=== PATIENT | female | born 1970 | race Caucasian/White ===

== ENCOUNTER 2017-10-03 11:01 | Inpatient (IN) | payer BC ==
[2017-10-03] MEDS: TRANEXAMIC ACID 1,000 MG in D5W 100 ML AT CLOSURE X1 IVPB
[~2017-10-03 11:01] MED LIST: CEFAZOLIN 2 GM/50 ML (PMX) 50 ML (FOR WT < 120 KG) IVPB; LIDOCAINE 2% (SDV) 5 ML INJ
[2017-10-03] MEDS ORDERED: POVIDONE IODINE 10% 28.4 GM OINT (14:08)
[2017-10-03] MEDS: POLYMYXIN B 500000 UNIT INJ (14:21)
[2017-10-03] MEDS: BACITRACIN 50000 UNITS INJ (14:21)
[2017-10-03] MEDS: ROPIVACAINE 0.2% 60 ML, CLONIDINE 100 MCG, EPINEPHrine 0.3 MG, SOD CHLORIDE 0.9% 50 ML IRR (14:22)
[2017-10-03] MEDS ORDERED: ROPIVACAINE IRR (14:30)
[2017-10-03] MEDS ORDERED: CLONIDINE IRR (14:30)
[2017-10-03] MEDS ORDERED: EPINEPHRINE IRR (14:30)
[2017-10-03] MEDS ORDERED: [UNRECOGNIZED DRUG - OTHER] IRR (14:30)
[2017-10-03] MEDS ORDERED: FENTAnyl 50 MCG/ML VIAL (15:13)
[2017-10-03] MEDS: TRANEXAMIC ACID 1,000 MG in D5W 100 ML AT INCISION X1 IVPB (15:15)
[2017-10-03] MEDS ORDERED: PROPOFOL 20 ML (16:42)
[2017-10-03] MEDS ORDERED: SUGAMMADEX SODIUM 200 MG/2 ML VIAL IV (16:42)
[2017-10-03] MEDS ORDERED: ROCURONIUM 50 MG INJ (16:42)
[2017-10-03] MEDS ORDERED: SUCCINYLCHOLINE CHLORIDE 100 MG/5 ML SYG IV (16:42)
[2017-10-03] MEDS ORDERED: CEFAZOLIN 1 GM INJ (16:42)
[2017-10-03] MEDS ORDERED: ZOLPIDEM 5 MG TAB PO (17:00)
[2017-10-03] MEDS ORDERED: SENNA/DOCUSATE NA (8.6MG/50MG) TAB PO (17:00)
[2017-10-03] MEDS ORDERED: MAGNESIUM HYDROXIDE 30ML CUP PO (17:00)
[2017-10-03] MEDS ORDERED: oxyCODONE 5 MG TAB PO ×2 (17:00)
[2017-10-03] MEDS ORDERED: NACL 0.9% 3 ML SYG IV (17:00)
[2017-10-03] MEDS ORDERED: TRIMETHOBENZAMIDE 100 MG/ML VIAL IM (17:00)
[2017-10-03] MEDS ORDERED: BETHANECHOL 25 MG TAB PO (17:00)
[2017-10-03] MEDS ORDERED: BISACODYL 10 MG SUPP PR (17:00)
[2017-10-03] MEDS ORDERED: NALOXONE (0.4 MG/ML) INJ IV (17:00)
[2017-10-03] MEDS ORDERED: DIPHENHYDRAMINE 50 MG INJ IM (17:00)
[2017-10-03] MEDS ORDERED: NA PHOSPHATE/BIPHOS 133 ML ENEMA PR (17:00)
[2017-10-03] MEDS ORDERED: OXYCODONE/ACETAMINOPHEN (5/325) TAB PO (17:30)
[2017-10-03] MEDS ORDERED: ALBUTEROL 0.083% (NEB) 2.5 MG/3 ML AMP HHN (17:30)
[2017-10-03] MEDS ORDERED: ONDANSETRON 4 MG INJ IV (17:30)
[2017-10-03] MEDS ORDERED: FENTAnyl 50 MCG/ML VIAL IV ×2 (17:30)
[2017-10-03] MEDS ORDERED: DIPHENHYDRAMINE 50 MG INJ IV (17:30)
[2017-10-03] MEDS ORDERED: HYDROmorphONE (0.2 MG/ML) 10ML SYG IV ×3 (17:30)
[2017-10-03] MEDS ORDERED: METOCLOPRAMIDE 10 MG INJ IV (17:30)
[2017-10-03] MEDS: ONDANSETRON 4 MG INJ IV ×2 (17:36→22:50)
[2017-10-03] MEDS: MEPERIDINE 25 MG INJ IV ×2 (17:38→18:00)
[2017-10-03] MEDS: DOCUSATE SODIUM 100 MG CAP PO (17:43)
[2017-10-03] MEDS: CEFAZOLIN 1 GM/50 ML (PMX) 50 ML IVPB (17:43)
[2017-10-03] MEDS: ASPIRIN (EC) 325 MG TAB PO (17:43)
[2017-10-03] MEDS: FENTAnyl 50 MCG/ML VIAL IV ×2 (17:54→18:45)
[2017-10-03] MEDS: SOD CHLORIDE 0.9% 1,000 ML IV (17:59)
[2017-10-03] MEDS: GABAPENTIN 100 MG CAP PO (22:48)
[2017-10-03] MEDS: oxyCODONE 5 MG TAB PO (23:42)
[2017-10-04] MEDS: CEFAZOLIN 1 GM/50 ML (PMX) 50 ML IVPB ×2 (00:23→09:30)
[2017-10-04] MEDS: oxyCODONE 5 MG TAB PO ×5 (02:44→19:54)
[2017-10-04] MEDS: ONDANSETRON 4 MG INJ IV ×2 (04:24→11:47)
[2017-10-04] MEDS: SOD CHLORIDE 0.9% 1,000 ML IV ×2 (05:41→17:52)
[2017-10-04] MEDS: PANTOPRAZOLE (EC) 40 MG TAB PO (05:41)
[2017-10-04 05:43] LABS: ADD MAN DIFF? NO
[2017-10-04 05:47] LABS: WHITE BLOOD COUNT 8.1 10^3/ul (4.8-10.8)
[2017-10-04 05:47] LABS: BASOPHILS % 0.1 % (0.0-2.0); EOSINOPHILS % 0.1 % (0.0-7.0); HEMATOCRIT 27.1 % (37.0-47.0); HEMOGLOBIN 9.4 g/dl (12.0-16.0); LYMPHOCYTES # 1.5 10^3/ul (0.8-2.9); LYMPHOCYTES % 18.7 % (15.0-51.0); MEAN CORPUSCULAR HEMOGLOBIN 28.7 pg (29.0-33.0); MEAN CORPUSCULAR HGB CONC 34.7 g/dl (32.0-37.0); MEAN CORPUSCULAR VOLUME 82.9 fl (82.0-101.0); MONOCYTE # 0.5 10^3/ul (0.3-0.9); MONOCYTES % 6.7 % (0.0-11.0); NEUTROPHILS % 74.2 % (39.0-77.0); PLATELET COUNT 182 10^3/UL (140-415); RED BLOOD COUNT 3.27 10^6/ul (4.20-5.40); RED CELL DISTRIBUTION WIDTH 12.4 % (11.5-14.5)
[2017-10-04 06:40] LABS: ADD UMIC YES; UR ASCORBIC ACID NEGATIVE (NEGATIVE); UR BILIRUBIN (Dip) NEGATIVE (NEGATIVE); UR BLOOD (Dip) 1+ mg/dL (NEGATIVE); UR CLARITY CLEAR (CLEAR); UR COLOR YELLOW (YELLOW); UR GLUCOSE (Dip) NEGATIVE (NEGATIVE); UR KETONES (Dip) NEGATIVE (NEGATIVE); UR LEUKOCYTE ESTERASE (Dip) NEGATIVE Leu/ul (NEGATIVE); UR NITRITE (Dip) NEGATIVE (NEGATIVE); UR RBC 1 /HPF (0-5); UR SPECIFIC GRAVITY (Dip) 1.014 (1.003-1.030); UR TOTAL PROTEIN (Dip) NEGATIVE (NEGATIVE); UR UROBILINOGEN (Dip) NEGATIVE (NEGATIVE); UR WBC 1 /HPF (0-5)
[2017-10-04 06:46] LABS: ANION GAP 13 (8-16); BLOOD UREA NITROGEN 9 mg/dl (7-20); CALCIUM 7.6 mg/dl (8.4-10.2); CARBON DIOXIDE 24 mmol/L (21-31); CHLORIDE 109 mmol/L (97-110); CREATININE 0.87 mg/dl (0.44-1.00); GLUCOSE 105 mg/dl (70-220); POTASSIUM 3.9 mmol/L (3.5-5.1); SODIUM 142 mmol/L (135-144)
[2017-10-04] MEDS ORDERED: CELECOXIB 200 MG CAP PO (09:00)
[2017-10-04] MEDS: FERROUS FUMARATE (SR) TAB PO ×2 (09:29→20:53)
[2017-10-04] MEDS: GABAPENTIN 100 MG CAP PO ×2 (09:29→20:53)
[2017-10-04] MEDS: ASPIRIN (EC) 325 MG TAB PO (09:29)
[2017-10-04] MEDS: DOCUSATE SODIUM 100 MG CAP PO ×2 (09:30→20:53)
[2017-10-04] MEDS: ACETAMINOPHEN 325 MG TAB PO (22:31)
[2017-10-04 22:47] LABS: ADD UMIC YES; UR ASCORBIC ACID NEGATIVE (NEGATIVE); UR BILIRUBIN (Dip) NEGATIVE (NEGATIVE); UR BLOOD (Dip) 2+ mg/dL (NEGATIVE); UR CLARITY SLIGHTLY CLOUDY (CLEAR); UR COLOR YELLOW (YELLOW); UR GLUCOSE (Dip) NEGATIVE (NEGATIVE); UR KETONES (Dip) NEGATIVE (NEGATIVE); UR LEUKOCYTE ESTERASE (Dip) NEGATIVE Leu/ul (NEGATIVE); UR NITRITE (Dip) NEGATIVE (NEGATIVE); UR RBC 4 /HPF (0-5); UR SPECIFIC GRAVITY (Dip) 1.006 (1.003-1.030); UR TOTAL PROTEIN (Dip) NEGATIVE (NEGATIVE); UR UROBILINOGEN (Dip) NEGATIVE (NEGATIVE); UR WBC 6 /HPF (0-5)
[2017-10-05] MEDS: oxyCODONE 5 MG TAB PO ×5 (00:13→15:46)
[2017-10-05 05:36] LABS: ADD MAN DIFF? NO
[2017-10-05 05:45] LABS: BASOPHILS % 0.2 % (0.0-2.0); EOSINOPHILS % 0.3 % (0.0-7.0); HEMATOCRIT 28.9 % (37.0-47.0); HEMOGLOBIN 9.8 g/dl (12.0-16.0); LYMPHOCYTES # 1.7 10^3/ul (0.8-2.9); LYMPHOCYTES % 18.4 % (15.0-51.0); MEAN CORPUSCULAR HEMOGLOBIN 28.1 pg (29.0-33.0); MEAN CORPUSCULAR HGB CONC 33.9 g/dl (32.0-37.0); MEAN CORPUSCULAR VOLUME 82.8 fl (82.0-101.0); MEAN PLATELET VOLUME 9.9 fl (7.4-10.4); MONOCYTE # 0.7 10^3/ul (0.3-0.9); MONOCYTES % 7.3 % (0.0-11.0); NEUTROPHIL # 6.6 10^3/ul (1.6-7.5); NEUTROPHILS % 73.5 % (39.0-77.0); PLATELET COUNT 174 10^3/UL (140-415); RED BLOOD COUNT 3.49 10^6/ul (4.20-5.40); RED CELL DISTRIBUTION WIDTH 12.6 % (11.5-14.5)
[2017-10-05] MEDS: PANTOPRAZOLE (EC) 40 MG TAB PO (05:53)
[2017-10-05] MEDS: SOD CHLORIDE 0.9% 1,000 ML IV (05:56)
[2017-10-05] MEDS: NITROGLYCERIN (SL) 0.4 MG TAB SL (06:21)
[2017-10-05 06:54] LABS: ANION GAP 13 (8-16); BLOOD UREA NITROGEN 6 mg/dl (7-20); CALCIUM 8.2 mg/dl (8.4-10.2); CARBON DIOXIDE 29 mmol/L (21-31); CHLORIDE 106 mmol/L (97-110); CREATININE 0.91 mg/dl (0.44-1.00); GLUCOSE 117 mg/dl (70-220); POTASSIUM 4.3 mmol/L (3.5-5.1); SODIUM 144 mmol/L (135-144)
[2017-10-05 08:22] LABS: TROPONIN-I < 0.012 ng/ml (0.00-0.12)
[2017-10-05] MEDS: DOCUSATE SODIUM 100 MG CAP PO (09:02)
[2017-10-05] MEDS: ASPIRIN (EC) 325 MG TAB PO (09:02)
[2017-10-05] MEDS: FERROUS FUMARATE (SR) TAB PO (09:02)
[2017-10-05] MEDS: GABAPENTIN 100 MG CAP PO (09:02)
[2017-10-05] MEDS: ACETAMINOPHEN 325 MG TAB PO (14:25)
== END 2017-10-05 17:45 | disposition home health service (06) | DRG 470 ==
LOC: REC 11:01 → MS1 10-04 11:12
PROC: 0SRB04A Replacement of Left Hip Joint with Ceramic on Polyethylene Synthetic Substitute, Uncemented, Open Approach (ICD-10-PCS; principal; 2017-10-03 13:00)
DX: M16.12 Unilateral primary osteoarthritis, left hip (principal); Z68.41 Body mass index [BMI] 40.0-44.9, adult; E66.01 Morbid (severe) obesity due to excess calories
CPT/HCPCS: 71045; 73530; 80048; 81001; 83036; 84484; 85025; 86850; 86900; 86901; 87040; 87081; 87086; 88304; 93005; 97110; 97116; 97162; 97530; 97535